=== PATIENT | female | born 2005 | race Asian ===

== ENCOUNTER 2024-08-09 15:11 | Emergency (ER) | payer OTHER, SELFPAY ==
[2024-08-09 15:19] VITALS: BP 117/71
--- NOTE | 2024-08-09 15:20 | ED.GENMED ---
ED Provider Triage
<Shakeel Dias PA-C - Last Filed: 08/09/24 15:24>
-
Patient seen by provider in Triage?: Seen in Triage
Attestation: A medical screening examination has been initiated by a qualified medical provider. Based on the assessment performed at this time, it has been determined that an emergent medical condition may exist and the patient has been informed
that further medical evaluation and possible additional diagnostic testing may be needed.
HPI: 19-year-old female presenting to the ER for evaluation of chest discomfort that started over the weekend, had a upper respiratory infection earlier in the week. States symptoms seem to be waxing and waning. Presently asymptomatic. Given
recent illness will check labs, question myocarditis. Patient otherwise stable. EKG nonischemic.
GENERAL: Alert , in no apparent distress
EYE: No visual abnormalities.
NECK: Trachea midline
ENT: No visible abnormalities.
LUNGS: No acute respiratory distress
NEUROLOGICAL: Alert and oriented
SKIN: Skin intact. No visible changes.
MUSCULOSKELETAL: Moving extremities normally
PSYCH: Normal and appropriate interaction.
This is a medical evaluation conducted in person to initiate diagnostic evaluation and provide initial therapeutics. Please see further documentation by the treating clinician.
History of Present Illness
<Shakeel Dias PA-C - Last Filed: 08/09/24 15:24>
General
Chief Complaint: Chest Pain
Time Seen by Provider: 08/09/24 18:07
<Yasmeen Morales DO - Last Filed: 08/09/24 21:15>
History of Present Illness
History of Present Illness:
19-year-old female without any significant past medical history presenting for substernal chest pain. Patient reports symptoms have been intermittent for the past several days. Denies any inciting injury or trauma. Denies any known cardiac
history. Reports the pain is a pressure. Denies any difficulty breathing. Denies any active fever or cough, however does note that she had an upper respiratory infection last week. Denies any history of blood clot, recent travel, recent surgery,
exogenous estrogen. Denies abdominal pain or GI symptoms. She has not tried any medications for the pain. She denies additional acute medical complaints.
Phy Exam
<Yasmeen Morales DO - Last Filed: 08/09/24 21:15>
Physical Exam
Physical Exam:
General: Well-appearing, no clinical signs of dehydration, nontoxic and in no acute distress
HEENT: protecting airway
Neck: appears supple
CV: Normal heart rate, regular rhythm, no evidence of cyanosis
Resp: No accessory muscle use, no increased work of breathing, lungs clear to auscultation bilaterally
Abd: No distention
Extremities: No deformities, no swelling
Neuro: alert, no focal neurologic deficit
: deferred
Rectal: deferred
Psych: Normal affect
Skin: Intact
Scores
<Yasmeen Morales DO - Last Filed: 08/09/24 21:15>
Heart Score for Chest Pain Patients
STEMI patient?: No
History: Slightly or Non-Suspicious
ECG: Normal
Age: </= 45 years
Risk Factors: No Risk Factors
Troponin: </= Normal Limit
Heart Score for Chest Pain Patients: 0
Heart Score Risk: 2.5% MACE over next 6 weeks
Course
<Shakeel Dias PA-C - Last Filed: 08/09/24 15:24>
Orders/Labs/Results
Orders:
Orders
08/09/24 15:12
Electrocardiogram (*1) Urgent
Reason for Study: Chest Pain
EKG- Treatment ONCE
08/09/24 15:23
Test Result ONCE
08/09/24 15:24
CR Chest - 2 Views Urgent
Comment:
Reason For Exam: chest discomfort, recent URI
08/09/24 15:29
Basic Metabolic Panel Urgent
Complete Blood Count/With Diff Urgent
HCG, Serum Qualitative Screen Urgent
Troponin I Urgent
Abnormal Lab Results
08/09/24
15:29
Glucose 110 H mg/dl
(70-99)
08/09/24 15:29
08/09/24 15:29
Vital Signs
Initial and Last Documented VS:
Initial Vital Signs
Temp Pulse Resp BP Pulse Ox
98.6 F 95 18 117/71 99
08/09/24 15:19 08/09/24 15:19 08/09/24 15:19 08/09/24 15:19 08/09/24 15:19
Last Documented Vital Signs
Temp Pulse Resp BP Pulse Ox
98.6 F 90 18 120/76 96
08/09/24 15:19 08/09/24 20:08 08/09/24 20:08 08/09/24 20:08 08/09/24 20:08
<Yasmeen Morales, DO - Last Filed: 08/09/24 21:15>
Orders/Labs/Results
Orders:
Orders
08/09/24 15:12
Electrocardiogram (*1) Urgent
Reason for Study: Chest Pain
EKG- Treatment ONCE
08/09/24 15:23
Test Result ONCE
08/09/24 15:24
CR Chest - 2 Views Urgent
Comment:
Reason For Exam: chest discomfort, recent URI
08/09/24 15:29
Basic Metabolic Panel Urgent
Complete Blood Count/With Diff Urgent
HCG, Serum Qualitative Screen Urgent
Troponin I Urgent
Abnormal Lab Results
08/09/24
15:29
Glucose 110 H mg/dl
(70-99)
08/09/24 15:29
08/09/24 15:29
Vital Signs
Initial and Last Documented VS:
Initial Vital Signs
Temp Pulse Resp BP Pulse Ox
98.6 F 95 18 117/71 99
08/09/24 15:19 08/09/24 15:19 08/09/24 15:19 08/09/24 15:19 08/09/24 15:19
Last Documented Vital Signs
Temp Pulse Resp BP Pulse Ox
98.6 F 90 18 120/76 96
08/09/24 15:19 08/09/24 20:08 08/09/24 20:08 08/09/24 20:08 08/09/24 20:08
<Yasmeen Morales DO - Last Filed: 08/09/24 21:15>
MDM/Problems Addressed
MDM/Problems Addressed:
19-year-old female presenting to the emergency department with intermittent chest pain. Vital signs on arrival are normal.
On exam, patient is well-appearing, no acute distress or discomfort. Unremarkable cardiac and pulmonary exam. EKG obtained on arrival, nonischemic. At this time low suspicion for ACS, absence of significant risk factors. PERC negative without
concern for PE. Suspected musculoskeletal component. Labs obtained prior to my assessment, undetectable troponin and normal chest x-ray. Patient low risk by heart score. At this time feel that she is stable for discharge with close and will
follow-up with her doctor. Return precautions discussed and patient verbalized understanding
<Yasmeen Morales DO - Last Filed: 08/09/24 21:15>
*EKG
Interpreted by ED Provider?: Yes
EKG Intrepretation Date: 08/09/24
EKG Intrepretation Time: 18:34
Interpretation: normal
Comparison EKG: no comparison EKG present
Heart Rate: 95
Rate: normal
Rhythm: sinus
[place]: normal axis
Interval: first degree heart block
QRS Pattern: normal QRS
Ischemia: no ischemia
*Critical Care Note
Total Time (30-74mins, 75-104mins- exclusive of procedures): Not Applicable
ED Attending Note
<Shakeel Dias PA-C - Last Filed: 08/09/24 15:24>
-
Portions of this chart may have been created with voice recognition software.� Occasional wrong word or��sound alike� substitutions may have occurred due to the inherent limitations of voice recognition software.
Discharge Plan
Departure
Patient Disposition: Home (Routine Discharge)
Date of Disposition: 08/09/24
Time of Disposition: 18:37
Patient with high blood pressure during this ER visit?: No
Condition: Good
Discharge Problem:
Chest wall pain
Instructions: Chest Pain That Is Not Caused by the Heart (DC)
Referrals:
Lloyd Nix MD [Active] -
Lynn James DO [Family Provider] -
Activity Restrictions/Additional Instructions:
You were seen in the emergency department for chest pain
You were found to have a normal chest x-ray and blood work, as well as EKG.
Please follow-up closely with your primary care physician, as well as a attending pathologist if your symptoms are persisting..
Return to the emergency department for any worsening of your symptoms, or any development of chest pain, difficulty breathing, abdominal pain with persistent vomiting and inability to tolerate food or liquid by mouth (concern for dehydration),
weakness, headache or confusion, fever greater than 100.4, or any additional symptoms that are concerning to you.
Thank you for choosing [facility].
Interventions
Interventions:
*Risk Screen - Suicide Last Done: 08/09/24 15:20
*General Assessment Last Done: 08/09/24 17:53
*Neglect/Abuse Screening Last Done: 08/09/24 15:20
*ED COVID-19 Vaccine History Last Done: 08/09/24 17:53
*Nursing Disposition Last Done: 08/09/24 20:08
ED- Cardiac Assessment Last Done: 08/09/24 17:53
Discharge Date and Time
Discharge Date/Time: 08/09/24 20:10
Print Language: NAURUAN
[2024-08-09 15:43] LABS: % Basophils 0.6 % (0-2); % Eosinophils 5.6 % (0-6); % Immature Granulocytes 0.1 % (0-0.5); % Lymphocytes 30.3 % (20.5-51.1); % Monocytes 6.9 % (1.7-9.3); % Neutrophils 56.5 % (42.2-75.2); Absolute Basophils 0.1 10^3/uL (0-0.2); Absolute Eosinophils 0.5 10^3/uL (0-0.7); Absolute Lymphocytes 2.7 10^3/uL (1.2-3.4); Absolute Monocytes 0.6 10^3/uL (0.1-0.6); Hematocrit 42.3 % (37.0-47.0); Mean Corp Hgb Conc. 33.1 g/dL (33.0-37.0); Mean Corpuscular Hgb 28.3 pg (27.0-31.0); Mean Corpuscular Volume 85.6 fL (81.0-99.0); Mean Platelet Volume 8.5 fL (7.4-10.4); Nucleated Red Blood Cells % 0 %; Platelet Count 285 10^3/uL (130-400); Red Blood Cell Count 4.94 10^6/uL (4.20-5.40); Red Cell Dist. Width 12.8 % (11.5-14.5); White Blood Cell Count 8.8 10^3/uL (4.8-10.8)
[2024-08-09 15:52] LABS: HCG, Serum Qualitative Screen Negative
[2024-08-09 15:56] LABS: Blood Urea Nitrogen 12 mg/dl (7-17); Calcium 9.9 mg/dl (8.4-10.2); Carbon Dioxide 25 mmol/L (22-30); Chloride 103 mmol/L (98-107); Glucose 110 mg/dl (70-99); Potassium 4.3 mmol/L (3.5-5.1); Sodium 144 mmol/L (135-145); eGFR > 60.00
[2024-08-09 16:20] LABS: Troponin I < 0.012 ng/ml
[2024-08-09 20:08] VITALS: BP 120/76
== END 2024-08-09 20:10 | disposition home or self-care (01) ==
LOC: EMR 15:11
PROVIDERS: Physician Assistant Medical; EMERGENCY PHYSICIAN Student in an Organized Health Care Education/Training Program; FAMILY PHYSICIAN Family Medicine
DX: R07.89 Other chest pain (principal)
CPT/HCPCS: 99285; 71046; 80048; 84484; 84703; 85025; 93005